=== PATIENT | female | born 1985 | race Caucasian/White ===

== ENCOUNTER 2018-06-03 19:49 | Emergency (ER) | payer SELFPAY ==
[~2018-06-03] VITALS: Ht 152.4 cm; Wt 70.6 kg
[2018-06-03 20:04] VITALS: BP 139/73; PULSE 122; RESP 18; Ht 152.4 cm; Wt 70.6 kg
--- NOTE | 2018-06-03 21:40 | ERD ---
ER Documentation Chief Complaint Chief Complaint Tachycardia, dizziness, CP X 5 days HPI 33-year-old female, with history of anxiety, presents to the emergency department complaining of sudden onset of dizziness, chest pain, palpitations associated with perioral numbness and finger paresthesias. The patient states that she has been under a lot of stress and persistent worrying about health and family. She has had similar episodes in the past but less intense, she is started Zoloft 3 days ago. History provided by patient. ROS All systems reviewed and are negative except as per history of present illness. Medications Home Meds Active Scripts Lorazepam* (Ativan*) 0.5 Mg Tablet, 0.5 MG PO Q8H PRN for ANXIETY, #10 TAB Prov:DEBO STRICKLAND MD 06/03/18 Allergies Allergies: Coded Allergies: No Known Allergy (Unverified , 06/03/18) PMhx/Soc Hx Miscellaneous Medical Probl: Yes (anxiety) Hx Alcohol Use: No Hx Substance Use: No Hx Tobacco Use: No Smoking Status: Never smoker FmHx Family History: No diabetes, No coronary disease Physical Exam Vitals Vital Signs Date Temp Pulse Resp B/P (MAP) Pulse Ox O2 O2 Flow FiO2 Time Delivery Rate 06/03/18 99.3 122 18 139/73 100 20:04 (95) Physical Exam Const: No acute distress Head: Atraumatic Eyes: Normal Conjunctiva ENT: Normal External Ears, Nose and Mouth. Neck: Full range of motion. No meningismus. Resp: Clear to auscultation bilaterally Cardio: Regular rate and rhythm, no murmurs Abd: Soft, non tender, non distended. Normal bowel sounds Skin: No petechiae or rashes Back: No midline or flank tenderness Ext: No cyanosis, or edema Neur: Awake and alert Psych: Normal Mood and Affect Results 24 hrs Current Medications Medications Dose Sig/Malka Start Time Status Last (Trade) Ordered Route PRN Stop Time Admin Dose Reason Admin Lorazepam 0.5 mg ONCE ONCE 06/03/18 DC 06/03/18 (Ativan) PO 22:30 06/03/18 22:23 22:31 Procedures/MDM Vital signs stable, Physical exam unremarkable, neurovascular exam intact. Differential diagnosis include but not limited to: Depression, anxiety, migraine, thyroid disease, electrolyte imbalance. Low suspicion for acute coronary event, aortic dissection, CVA. Pertinent Data: 12 Lead ECG: Sinus rhythm, no ST changes, normal T wave, normal intervals Physical examination and clinical presentation consistent most likely with anxie ty. During the ED course the patient remained stable, no new complaints. The patient received treatment with lorazepam presenting overall improvement of the symptoms. Results and clinical impression discussed with patient who agrees with management. The patient is stable to be treated outpatient and will be discharged home with a Rx for lorazepam, some side effects of prescribed me dications (headache, rash, nausea, vomiting, diarrhea, drowsiness, habituation, bleeding, hypertension, interactions with other medications) were reviewed. The patient was instructed to follow up with the primary care provider in the next 48h. If symptoms persist, worsen or new symptoms develop, then patient should return to the ED immediately. Instructions explained and given directly by me to the patient with acknowledgment and demonstrated understanding. Disclaimer: Inadvertent spelling and grammatical errors are likely due to EHR/dictation software use and do not reflect on the overall quality of patient care. Also, please note that the electronic time recorded on this note does not necessarily reflect the actual time of the patient encounter. Departure Diagnosis: Primary Impression: Anxiety Condition: Stable Additional Instructions: Thank you very much for allowing us to participate in your care. Your health and safety is our top priority at [facility]. Call your primary care doctor TOMORROW for an appointment during the next 2-4 days and bring all the information and medications prescribed. Have prescriptions filled and follow precisely the directions on the label. If the symptoms get worse and your provider is unavailable, return to the Emergency Department immediately. DEBO STRICKLAND MD Jun 03, 2018 21:40
[2018-06-03] MEDS ORDERED: LORAZEPAM 0.5 MG TAB PO ONE (22:30)
[2018-06-03] MEDS ORDERED: LORA-441 PO (23:01)
[2018-06-04] MEDS ORDERED: SERT50TA PO (09:00)
== END 2018-06-03 23:18 | disposition home or self-care (01) ==
LOC: FTE 19:49
DX: F41.9 Anxiety disorder, unspecified (principal)
CPT/HCPCS: 93005

== ENCOUNTER 2018-06-04 01:55 | Emergency (ER) | payer MEDICAID ==
[~2018-06-04] VITALS: Ht 152.4 cm; Wt 97.9 kg
[~2018-06-04 01:55] MED LIST: LORA-441 PO
[2018-06-04 01:59] VITALS: Ht 152.4 cm; Wt 97.9 kg
--- NOTE | 2018-06-04 03:32 | PSY ---
Date/Time of Note Date/Time of Note DATE: 06/04/18 TIME: 03:28 Psychiatric Subjective Eval Consent Pt consented to telemedicine: Yes Subjective Evaluation Patient location: emergency Chief Complaint: ANXIETY/PANIC ATTACKS X 5 DAYS; NOT TAKING ATIVAN RX DIRECTED Medical history Problems Medical Problems: (1) Anxiety Status: Acute Allergies: Coded Allergies: No Known Allergy (Unverified , 06/03/18) Psychiatric Objective Eval Mental Status Examination: Laboratory Results Laboratory Tests Test 06/04/18 02:30 06/04/18 03:04 Urine Color YELLOW Urine Clarity CLEAR Urine pH 6.0 Urine Specific [place] 1.011 Urine Ketones 2+ mg/dL Urine Nitrite NEGATIVE mg/dL Urine Bilirubin NEGATIVE mg/dL Urine Urobilinogen NEGATIVE mg/dL Urine Leukocyte Esterase NEGATIVE Miesha/ul Urine Microscopic RBC 1 /HPF Urine Microscopic WBC 1 /HPF Urine Bacteria FEW /HPF Urine Mucus FEW /HPF Urine Hemoglobin 1+ mg/dL Urine Glucose NEGATIVE mg/dL Urine Total Protein NEGATIVE mg/dl Urine Opiates Screen Negative Urine Barbiturates Negative Urine Amphetamines Screen Negative Urine Benzodiazepines Screen Positive Urine Cocaine Screen Negative Urine Cannabinoids Positive White Blood Count 8.4 10^3/ul Red Blood Count 4.51 10^6/ul Hemoglobin 14.5 g/dl Hematocrit 43.1 % Mean Corpuscular Volume 95.6 fl Mean Corpuscular Hemoglobin 32.2 pg Mean Corpuscular Hemoglobin Concent 33.6 g/dl Red Cell Distribution Width 12.0 % Platelet Count 303 10^3/UL Mean Platelet Volume 9.4 fl Immature Granulocytes % 0.500 % Neutrophils % 80.6 % Lymphocytes % 13.5 % Monocytes % 5.0 % Eosinophils % 0.2 % Basophils % 0.2 % Nucleated Red Blood Cells % 0.0 /100WBC Immature Granulocytes # 0.040 10^3/ul Neutrophils # 6.7 10^3/ul Lymphocytes # 1.1 10^3/ul Monocytes # 0.4 10^3/ul Eosinophils # 0.0 10^3/ul Basophils # 0.0 10^3/ul Nucleated Red Blood Cells # 0.0 10^3/ul Assessment and Plan Recommendation/Plan Discharge Disposition: Psychiatric inpatient Legal Status: Voluntary Assessment Additional comments: IDENTIFYING INFORMATION: 33 year old Female patient who is currently located at the hospital and for whom psychiatric consultation was requested. SOURCES OF INFORMATION: The patient who appears to be reliable and the medical records; the nursing staff. [id number], Ms. Lucero, who appears to be reliable. CHIEF COMPLAINT: "panic attacks". HISTORY OF PRESENT ILLNESS: The patient was interviewed via telemedicine in the presence of and under the supervision of nursing staff of the hospital. The consent to conducting this in [facility] via telemedicine was obtained by the nursing staff at the hospital. NAPOLEON Jaquez reports that the patient presented with anxiety. Denied having SI, HI. Is not on a 5150 hold. The patient reports having anxiety, panic attacks with intense anxiety, t achycardia, tingling in her fingers, nausea/vomitting, fear of getting a heart attack, admits to agoraphobia. Reports that she was worried she might hurt herself, but does not want to do so. Admits to feeling depressed, having anhedonia, admits to sleep-maintenance insomnia, low appetite. The patient denies having HI. [id number] reports that the pt stated that she is afraid she may hurt herself and ask for help. The patient denies using alcohol heavily or regularly. The patient reports using MJ occasionally. The patient denies using any other substances. In terms of past psychiatric history, the patient reports having a history of no past psychiatric hospitalizations. The patient reports having a history of no past suicide attempts; cut herself mercado perficially when a teenager. Past medication trials: unknown antidepressant. The patient denies ever having a history of AH, delusions, manic or hypomanic episodes. PAST MEDICAL HISTORY: none. CURRENT MEDICATIONS: xanax 0.25 mg po q4hrs prn anxiety, zoloft 50 mg po qday, lorazepam 0.5 mg po bid prn anxiety. ALLERGIES TO MEDICATIONS: NKDA. LABORATORY TESTS: CBC wnl, UDS + benzos, MJ. 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 FAMILY HISTORY: Noncontributory for bipolar disorder, schizophrenia. Depression: greatgrandmother, uncle. REVIEW OF SYSTEMS: Constitutional (e.g., fever, weight loss): negative; Eyes, Ears, Nose, Mouth, Throat: negative; Cardiovascular: negative; Respiratory: negative; Gastrointestinal: negative; Genitourinary: negative; Musculoskeletal: negative; Integumentary (skin and/or breast): negative; Neurological: negative; Psychiatric: as per HPI; Endocrine: negative; Hematologic/Lymphatic: negative; Allergic/Immunologic: negative. MENTAL STATUS EXAMINATION: General Appearance and Behavior: tearful, cooperative with the interview, pleasant with the current interviewer, makes fair eye contact, fairly groomed, no abnormal movements noted, Speech: normal rate, regular rhythm, normal latency, low volume, decreased amount. Flow of thought: sequential, logical, goal-directed, Content of thought: no auditory hallucinations, no visual hallucinations, no delusions, positive for ego-dystonic suicidal ideation; no homicidal ideation, Mood: "depressed", Affect: dysthymic, dysphoric, not reactive, Attention: normal based on the interview, Insight: fair, Judgment: poor, Memory: normal based on the interview, Sensorium: alert and oriented to person, place and date. ASSESSMENT: The patient's presentation and history are consistent with the diagnosis of major depressive disorder, panic disorder with agoraphobia. The patient presents in a major depressive episode in the context of medication compliance, psychosocial stressors and substance use. admits to using cannabis occasionally. No evidence of psychosis, deirdre, hypomania on exam. PLAN: - Medication management: Would continue Zoloft 50 mg by mouth twice a day. Would Increase Ativan to 1 mg by mouth 3 times a day as needed for anxiety. Would start haloperidol 5 mg IM PRN severe agitation q4 hours. Would start diphenhydramine 50 mg IM PRN severe agitation q4 hours. Would start lorazepam 2 mg IM PRN severe agitation q4 hours Will defer to the inpatient psychiatry team for other medication changes. - Labs: Please check CMP, Alcohol level, TSH. - Psychotherapy: Provided supportive psychotherapy and psychoeducation. - Disposition: Would recommend voluntary admission to the inpatient psychiatric unit as the patient would benefit from such an intervention so long as the patient has been cleared medically for admission to psychiatry. The patient is agreeable to being hospitalized in the inpatient psychiatric unit at this time. Would place on suicide precautions. Discussed about the above plan with Dr. Madrid. GALE QUIROS MD Jun 04, 2018 03:32
[2018-06-04] MEDS ORDERED: LORAZEPAM 1 MG TAB PO ONE (04:00)
[2018-06-04] MEDS ORDERED: DIPHENHYDRAMINE 50 MG INJ IM ONE (05:00)
[2018-06-04] MEDS ORDERED: SERTRALINE 50 MG TAB PO SCH (09:00)
[2018-06-04] MEDS ORDERED: SERT50TA PO (09:00)
[2018-06-04] MEDS: LORAZEPAM 1 MG TAB PO PRN ×2 (09:10→15:33)
--- NOTE | 2018-06-04 10:11 | QN ---
Documentation Comment Patient was signed out to me by Dr. Trejo who initially saw the patient. Observation Note: Time: 4 hours Family Hx: Negative for diabetes Evaluation: Multiple exams showed improving symptoms and no evidence of clinical decompensation. KARTHIK REEVES MD Jun 04, 2018 10:11
[2018-06-04] MEDS ORDERED: ACETAMINOPHEN 325 MG TAB PO ONE (13:30)
--- NOTE | 2018-06-04 15:16 | PSY ---
Date/Time of Note Date/Time of Note DATE: 06/04/18 TIME: 15:08 Psychiatric Subjective Eval Consent Pt consented to telemedicine: Yes Subjective Evaluation Patient location: emergency Chief Complaint: ANXIETY/PANIC ATTACKS X 5 DAYS; NOT TAKING ATIVAN RX DIRECTED History of present illness 33 yo employed female, presented to ED x2 in 24 hours due to persistent state of panic. Pt is tearful; she said she knows a woman who committed suicide by jumping off the roof due to severe anxiety and she is afraid she will loose control and will do something similar to herself. She is stressed out about saray joseph, her going through immigration process and her dealing with work, kids and finances on her own. Hopeless, helpless, sad; started on zoloft 5 ays ago but feels worse. Poor sleep, poor appetite, restless, racing thoughts. NO psychosis, no HI. NO Active Si but is afraid of "dark thoughts". 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 Psychiatric Objective Eval Review of Systems: Review of Systems: Not Applicable Physical Examination: Sleep: Insomnia Appetite: Decreased Energy: Decreased Interest: Decreased Mental Status Examination: Appearance: Groomed Eye Contact: Good Psychomotor Activity: Normal Behavior: Cooperative Speech: Clear AFFECT: Depressed, Anxious Mood: Depressed, Anxious Though Process: Linear Thought Content: Normal Suicidal: Yes Homicidal: No On 72 hour hold: No Orientation: x4 Cognition: Alert Insight: Impared Judgement: Impared Laboratory Results Laboratory Tests Test 06/04/18 02:30 06/04/18 03:04 Urine Color YELLOW Urine Clarity CLEAR Urine pH 6.0 Urine Specific [place] 1.011 Urine Ketones 2+ mg/dL Urine Nitrite NEGATIVE mg/dL Urine Bilirubin NEGATIVE mg/dL Urine Urobilinogen NEGATIVE mg/dL Urine Leukocyte Esterase NEGATIVE Miesha/ul Urine Microscopic RBC 1 /HPF Urine Microscopic WBC 1 /HPF Urine Bacteria FEW /HPF Urine Mucus FEW /HPF Urine Hemoglobin 1+ mg/dL Urine Glucose NEGATIVE mg/dL Urine Total Protein NEGATIVE mg/dl Urine Opiates Screen Negative Urine Barbiturates Negative Urine Amphetamines Screen Negative Urine Benzodiazepines Screen Positive Urine Cocaine Screen Negative Urine Cannabinoids Positive White Blood Count 8.4 10^3/ul Red Blood Count 4.51 10^6/ul Hemoglobin 14.5 g/dl Hematocrit 43.1 % Mean Corpuscular Volume 95.6 fl Mean Corpuscular Hemoglobin 32.2 pg Mean Corpuscular Hemoglobin Concent 33.6 g/dl Red Cell Distribution Width 12.0 % Platelet Count 303 10^3/UL Mean Platelet Volume 9.4 fl Immature Granulocytes % 0.500 % Neutrophils % 80.6 % Lymphocytes % 13.5 % Monocytes % 5.0 % Eosinophils % 0.2 % Basophils % 0.2 % Nucleated Red Blood Cells % 0.0 /100WBC Immature Granulocytes # 0.040 10^3/ul Neutrophils # 6.7 10^3/ul Lymphocytes # 1.1 10^3/ul Monocytes # 0.4 10^3/ul Eosinophils # 0.0 10^3/ul Basophils # 0.0 10^3/ul Nucleated Red Blood Cells # 0.0 10^3/ul Sodium Level 142 mmol/L Potassium Level 3.9 mmol/L Chloride Level 105 mmol/L Carbon Dioxide Level 25 mmol/L Anion Gap 12 Blood Urea Nitrogen 8 mg/dl Creatinine 0.59 mg/dl Est Glomerular Filtrat Rate mL/min > 60 mL/min Glucose Level 132 mg/dl Calcium Level 10.9 mg/dl Total Bilirubin 0.2 mg/dl Direct Bilirubin 0.00 mg/dl Indirect Bilirubin 0.2 mg/dl Aspartate Amino Transf (AST/SGOT) 33 IU/L Alanine Aminotransferase (ALT/SGPT) 15 IU/L Alkaline Phosphatase 91 IU/L Total Protein 8.7 g/dl Albumin 5.0 g/dl Globulin 3.70 g/dl Albumin/Globulin Ratio 1.35 Thyroid Stimulating Hormone (TSH) 2.880 MIU/L Serum HCG, Qualitative NEGATIVE Salicylates Level < 1.0 mg/dl Acetaminophen Level < 10.0 ug/ml Ethyl Alcohol Level < 10.0 mg/dl Assessment and Plan Assessment/Diagnosis Diagnosis MAJOR DEPRESSIVE DISORDER RECURRENT SEVERE W/O PSYCHOSIS. PANIC DISORDER. Recommendation/Plan Medication Management STOP ZOLOFT - INCREASED ANXIETY AFTER 5 DAYS ON ZOLOFT. START PAXIL 20 MG POQHS. STOP XANAX. CLONAZEPAM ODT 0.5 MG PO TID; FOR ANXIETY, AGITATION: HALDOL 2 MG + ATIVAN 2 MG + BENADRYL 50 MG PO OR IM PRN Q 8 HRS. Multiple antipsychotics: Yes Psychotherapy DEFER TO INPT Discharge Disposition: Psychiatric inpatient Legal Status: Voluntary Other TRANSFER TO INPT PSYCH FOR DTS. PT IS WILLING TO ACCEPT INPT CARE VOLUNTARY. GUSTAVO GAITAN MD Jun 04, 2018 15:16
--- NOTE | 2018-06-04 16:09 | EN ---
Date/Time of Note Date/Time of Note DATE: 06/04/18 TIME: 16:07 ER Progress Note Psychiatric Observation Note: Indication: Dark racing thoughts, possible acute psychosis Duration: Greater than 14 hours Family history: As documented in original HPI The patient was observed with serial exams over the above timeframe. The patie nt continued to be well-appearing, and observation continued without complication. All other needs have been met during emergency department stay. Routine psychiatric medications ordered: Yes, see EMR Hold status: Patient is not currently on hold but is recommended for voluntary placement. The patient is having dark racing thoughts. Pending PMR T evaluation Placement status: As noted above based on my review of the patient's chart, vital signs and electronic medical record the patient is medically cleared for psychiatric evaluation and placement. Pending PMR T evaluation at this time. Psychiatric recommendation Assessment and Plan Assessment/Diagnosis Diagnosis MAJOR DEPRESSIVE DISORDER RECURRENT SEVERE W/O PSYCHOSIS. PANIC DISORDER. Recommendation/Plan Medication Management STOP ZOLOFT - INCREASED ANXIETY AFTER 5 DAYS ON ZOLOFT. START PAXIL 20 MG POQHS. STOP XANAX. CLONAZEPAM ODT 0.5 MG PO TID; FOR ANXIETY, AGITATION: HALDOL 2 MG + ATIVAN 2 MG + BENADRYL 50 MG PO OR IM PRN Q 8 HRS. Multiple antipsychotics: Yes Psychotherapy DEFER TO INPT Discharge Disposition: Psychiatric inpatient Legal Status: Voluntary Other TRANSFER TO INPT PSYCH FOR DTS. PT IS WILLING TO ACCEPT INPT CARE VOLUNTARY. SIRI HAQUE MD Jun 04, 2018 16:09
[2018-06-04] MEDS ORDERED: PAROXETINE 20 MG TAB PO SCH (21:00)
[2018-06-04] MEDS: clonAZEPAM 0.5 MG TAB PO SCH (21:28)
--- NOTE | 2018-06-04 23:44 | ERD ---
ER Documentation Chief Complaint Chief Complaint ANXIETY/PANIC ATTACKS X 5 DAYS; NOT TAKING ATIVAN RX DIRECTED HPI This is a 33-year-old female with anxiety and panic attacks for 5 days. She is was prescribed Ativan but was afraid to take it. According to the family she has not been sleeping regularly and unfortunately the patient has not been sleeping at all. Patient denies suicidal ideation same. Patient also denies homicidal ideations ROS All systems reviewed and are negative except as per history of present illness. Medications Home Meds Active Scripts Lorazepam* (Ativan*) 0.5 Mg Tablet, 0.5 MG PO Q8H PRN for ANXIETY, #10 TAB Prov:DEBO STRICKLAND MD 06/03/18 Reported Medications Sertraline Hcl* (Zoloft*) 50 Mg Tablet, 50 MG PO DAILY, #30 TAB 06/04/18 Allergies Allergies: Coded Allergies: No Known Allergy (Unverified , 06/04/18) PMhx/Soc Medical and Surgical Hx: pt denies Surgical Hx Hx Miscellaneous Medical Probl: Yes (anxiety) Hx Alcohol Use: No Hx Substance Use: No Hx Tobacco Use: No Smoking Status: Never smoker Physical Exam Vitals Vital Signs Date Temp Pulse Resp B/P (MAP) Pulse Ox O2 O2 Flow FiO2 Time Delivery Rate 06/04/18 98.1 95 18 115/73 100 Room Air 22:00 (87) 06/04/18 98.3 120 17 110/78 100 Room Air 08:51 (89) 06/04/18 98.3 88 20 131/88 99 04:02 (102) 06/04/18 97.9 131 20 141/92 99 01:59 (108) Physical Exam Const: No acute distress Head: Atraumatic Eyes: Normal Conjunctiva ENT: Normal External Ears, Nose and Mouth. Neck: Full range of motion. No meningismus. Resp: Clear to auscultation bilaterally Cardio: Regular rate and rhythm, no murmurs Abd: Soft, non tender, non distended. Normal bowel sounds Skin: No petechiae or rashes Back: No midline or flank tenderness Ext: No cyanosis, or edema Neur: Awake and alert Psych: Normal Mood and Affect Result Diagram: 06/04/18 0304 06/04/18 0304 Results 24 hrs Laboratory Tests Test 06/04/18 02:30 06/04/18 03:04 Urine Color YELLOW Urine Clarity CLEAR Urine pH 6.0 Urine Specific [place] 1.011 Urine Ketones 2+ mg/dL Urine Nitrite NEGATIVE mg/dL Urine Bilirubin NEGATIVE mg/dL Urine Urobilinogen NEGATIVE mg/dL Urine Leukocyte Esterase NEGATIVE Miesha/ul Urine Microscopic RBC 1 /HPF Urine Microscopic WBC 1 /HPF Urine Bacteria FEW /HPF Urine Mucus FEW /HPF Urine Hemoglobin 1+ mg/dL Urine Glucose NEGATIVE mg/dL Urine Total Protein NEGATIVE mg/dl Urine Opiates Screen Negative Urine Barbiturates Negative Urine Amphetamines Screen Negative Urine Benzodiazepines Screen Positive Urine Cocaine Screen Negative Urine Cannabinoids Positive White Blood Count 8.4 10^3/ul Red Blood Count 4.51 10^6/ul Hemoglobin 14.5 g/dl Hematocrit 43.1 % Mean Corpuscular Volume 95.6 fl Mean Corpuscular Hemoglobin 32.2 pg Mean Corpuscular Hemoglobin Concent 33.6 g/dl Red Cell Distribution Width 12.0 % Platelet Count 303 10^3/UL Mean Platelet Volume 9.4 fl Immature Granulocytes % 0.500 % Neutrophils % 80.6 % Lymphocytes % 13.5 % Monocytes % 5.0 % Eosinophils % 0.2 % Basophils % 0.2 % Nucleated Red Blood Cells % 0.0 /100WBC Immature Granulocytes # 0.040 10^3/ul Neutrophils # 6.7 10^3/ul Lymphocytes # 1.1 10^3/ul Monocytes # 0.4 10^3/ul Eosinophils # 0.0 10^3/ul Basophils # 0.0 10^3/ul Nucleated Red Blood Cells # 0.0 10^3/ul Sodium Level 142 mmol/L Potassium Level 3.9 mmol/L Chloride Level 105 mmol/L Carbon Dioxide Level 25 mmol/L Anion Gap 12 Blood Urea Nitrogen 8 mg/dl Creatinine 0.59 mg/dl Est Glomerular Filtrat Rate mL/min > 60 mL/min Glucose Level 132 mg/dl Calcium Level 10.9 mg/dl Total Bilirubin 0.2 mg/dl Direct Bilirubin 0.00 mg/dl Indirect Bilirubin 0.2 mg/dl Aspartate Amino Transf (AST/SGOT) 33 IU/L Alanine Aminotransferase (ALT/SGPT) 15 IU/L Alkaline Phosphatase 91 IU/L Total Protein 8.7 g/dl Albumin 5.0 g/dl Globulin 3.70 g/dl Albumin/Globulin Ratio 1.35 Thyroid Stimulating Hormone (TSH) 2.880 MIU/L Serum HCG, Qualitative NEGATIVE Salicylates Level < 1.0 mg/dl Acetaminophen Level < 10.0 ug/ml Ethyl Alcohol Level < 10.0 mg/dl Current Medications Medications Dose Sig/Malka Start Time Status Last (Trade) Ordered Route PRN Stop Time Admin Dose Reason Admin Lorazepam 1 mg ONCE ONCE 06/04/18 DC 06/04/18 (Ativan) PO 04:00 06/04/18 04:15 04:01 50 mg ONCE ONCE 06/04/18 DC 06/04/18 Diphenhydrami IM 05:00 06/04/18 05:01 ne HCl 05:01 (Benadryl) Sertraline 50 mg BID PO 06/04/18 DC 06/04/18 HCl 09:00 06/04/18 09:18 (Zoloft) 16:11 Lorazepam 1 mg TID PRN 06/04/18 DC 06/04/18 (Ativan) PO anxiety 09:00 06/04/18 15:33 16:11 650 mg ONCE ONCE 06/04/18 DC 06/04/18 Acetaminophen PO 13:30 06/04/18 14:16 (Tylenol 13:31 Tab) Paroxetine 20 mg QHS PO 06/04/18 06/04/18 HCl (Paxil) 21:00 20:29 Clonazepam 0.5 mg TID PO 06/04/18 06/04/18 (Klonopin) 21:00 21:28 Procedures/MDM Patient's behavioral symptoms have stabilized while in the department. Patient is medically cleared and appropriate for psychiatric evaluation and work up. No e/o neurologic, toxic, infectious, or metabolic cause. Patient was evaluated by telemetry psychiatry and found to be stable for a voluntary hold given her anxiety and thoughts of suicide. Signed out pending final disposition at 6 AM to oncoming physician Departure Diagnosis: Primary Impression: Psychological disorder Condition: DOMINICK Curry Jun 04, 2018 23:44
[2018-06-05] MEDS: clonAZEPAM 0.5 MG TAB PO SCH ×2 (08:39→12:13)
[2018-06-05] MEDS ORDERED: ACETAMINOPHEN 325 MG TAB PO ONE (11:00)
--- NOTE | 2018-06-05 11:01 | PSY ---
Date/Time of Note Date/Time of Note DATE: 06/05/18 TIME: 10:57 Psychiatric Subjective Eval Consent Pt consented to telemedicine: Yes Subjective Evaluation Patient location: emergency Chief Complaint: ANXIETY/PANIC ATTACKS X 5 DAYS; NOT TAKING ATIVAN RX DIRECTED Reason for consult: Reevaluation for anxiety History of present illness 33 yo employed female, presented to ED x2 in 24 hours due to persistent state of panic. Pt was seen by michael Reno yesterday. At that time she was tearful; she said she knows a woman who committed suicide by jumping off the roof due to severe anxiety and she is afraid she will loose control and will do something similar to herself. She is stressed out about finances, her going through immigration process and her dealing with work, kids and finances on her own. Pt was started on Paxil last HS; klonopin 0.5 mg tid; this AM she has bright affect, she says she feels better. She denies SI or HI and wants to be discharged. 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 Psychiatric Objective Eval Review of Systems: Review of Systems: Not Applicable Physical Examination: Sleep: Adequate Energy: Adequate Interest: Adequate Mental Status Examination: Appearance: Groomed Eye Contact: Good Psychomotor Activity: Normal Behavior: Cooperative Speech: Clear AFFECT: Appropriate Mood: Appropriate/Full Though Process: Linear Thought Content: Normal Suicidal: No Homicidal: No On 72 hour hold: No Orientation: x4 Cognition: Alert Insight: Intact Judgement: Intact Laboratory Results Laboratory Tests Test 06/04/18 02:30 06/04/18 03:04 Urine Color YELLOW Urine Clarity CLEAR Urine pH 6.0 Urine Specific [place] 1.011 Urine Ketones 2+ mg/dL Urine Nitrite NEGATIVE mg/dL Urine Bilirubin NEGATIVE mg/dL Urine Urobilinogen NEGATIVE mg/dL Urine Leukocyte Esterase NEGATIVE Miesha/ul Urine Microscopic RBC 1 /HPF Urine Microscopic WBC 1 /HPF Urine Bacteria FEW /HPF Urine Mucus FEW /HPF Urine Hemoglobin 1+ mg/dL Urine Glucose NEGATIVE mg/dL Urine Total Protein NEGATIVE mg/dl Urine Opiates Screen Negative Urine Barbiturates Negative Urine Amphetamines Screen Negative Urine Benzodiazepines Screen Positive Urine Cocaine Screen Negative Urine Cannabinoids Positive White Blood Count 8.4 10^3/ul Red Blood Count 4.51 10^6/ul Hemoglobin 14.5 g/dl Hematocrit 43.1 % Mean Corpuscular Volume 95.6 fl Mean Corpuscular Hemoglobin 32.2 pg Mean Corpuscular Hemoglobin Concent 33.6 g/dl Red Cell Distribution Width 12.0 % Platelet Count 303 10^3/UL Mean Platelet Volume 9.4 fl Immature Granulocytes % 0.500 % Neutrophils % 80.6 % Lymphocytes % 13.5 % Monocytes % 5.0 % Eosinophils % 0.2 % Basophils % 0.2 % Nucleated Red Blood Cells % 0.0 /100WBC Immature Granulocytes # 0.040 10^3/ul Neutrophils # 6.7 10^3/ul Lymphocytes # 1.1 10^3/ul Monocytes # 0.4 10^3/ul Eosinophils # 0.0 10^3/ul Basophils # 0.0 10^3/ul Nucleated Red Blood Cells # 0.0 10^3/ul Sodium Level 142 mmol/L Potassium Level 3.9 mmol/L Chloride Level 105 mmol/L Carbon Dioxide Level 25 mmol/L Anion Gap 12 Blood Urea Nitrogen 8 mg/dl Creatinine 0.59 mg/dl Est Glomerular Filtrat Rate mL/min > 60 mL/min Glucose Level 132 mg/dl Calcium Level 10.9 mg/dl Total Bilirubin 0.2 mg/dl Direct Bilirubin 0.00 mg/dl Indirect Bilirubin 0.2 mg/dl Aspartate Amino Transf (AST/SGOT) 33 IU/L Alanine Aminotransferase (ALT/SGPT) 15 IU/L Alkaline Phosphatase 91 IU/L Total Protein 8.7 g/dl Albumin 5.0 g/dl Globulin 3.70 g/dl Albumin/Globulin Ratio 1.35 Thyroid Stimulating Hormone (TSH) 2.880 MIU/L Serum HCG, Qualitative NEGATIVE Salicylates Level < 1.0 mg/dl Acetaminophen Level < 10.0 ug/ml Ethyl Alcohol Level < 10.0 mg/dl Assessment and Plan Assessment/Diagnosis Diagnosis MAJOR DEPRESSIVE DISRODER RECURRENT MODERATE; PANIC DISORDER. GEN ANXIETY DISORDER. Recommendation/Plan Medication Management CONTINUE PAXIL 20 MG POQHS, KLONOPIN 0.5 MG PO TID Multiple antipsychotics: Yes Psychotherapy PLEASE REFER TO IOP OR PHP IF POSSIBLE Discharge Disposition: Community (home) Legal Status: Voluntary Other PT DOES NOT PRESENT DTS, NO DTO OR GD; PT CAN BE DISCHARGED WITH OUT PT REFERRALS. GUSTAVO GAITAN MD Jun 05, 2018 11:01
[2018-06-05] MEDS ORDERED: PARO-2 PO (11:18)
[2018-06-05 11:34] VITALS: BP 113/65; PULSE 65; RESP 17
== END 2018-06-05 13:31 | disposition home or self-care (01) ==
LOC: E/R 01:55
DX: F99 Mental disorder, not otherwise specified (principal)
CPT/HCPCS: 80053; 80307; 81001; 84443; 84703; 85025; 96372; J1200; Z7502; Z7610

== ENCOUNTER 2018-06-08 15:20 | Emergency (ER) | payer MEDICAID ==
[~2018-06-08] VITALS: Ht 152.4 cm; Wt 75.0 kg
[~2018-06-08 15:20] MED LIST changes: +PARO-2 PO; +SERT50TA PO
[2018-06-08 15:28] VITALS: Ht 152.4 cm; Wt 75.0 kg
[2018-06-08] MEDS ORDERED: ACET-141 PO (21:52)
[2018-06-08] MEDS ORDERED: ALPR0.25 PO (21:52)
--- NOTE | 2018-06-08 22:29 | ERD ---
ER Documentation Chief Complaint Chief Complaint PSYCH MEDS "MAKING ME FEEL WEIRD" HPI The patient is a 33-year-old female, presenting to the ER because of anxiety. She was taking Zoloft that caused her insomnia, she was recently changed to Paxil on June 04, 2018 by the telepsychiatrist. However she could not tolerate Paxil neither and is requesting to see telepsychiatrist. She denies auditory/visual hallucination, suicidal/homicidal ideation, headache, neck pain, chest pain, dyspnea, abdominal pain, vomiting, dysuria, diarrhea. She does not smoke nor drink or does illicit drug Medical history: Anxiety, depression, panic disorder Past surgical history: None ROS All systems reviewed and are negative except as per history of present illness. Medications Home Meds Active Scripts Paroxetine Hcl* (Paxil*) 20 Mg Tablet, 20 MG PO HS for 7 Days, TAB Prov:KARTHIK REEVES MD 06/05/18 Reported Medications Acetaminophen* (Acetaminophen*) 500 MG Extra Strength Tablet, 500 MG PO Q4H PRN for PAIN AND OR ELEVATED TEMP, TAB 06/08/18 Alprazolam* (Xanax*) 0.25 Mg Tablet, 0.25 MG PO DAILY PRN for ANXIETY, TAB 06/08/18 Discontinued Reported Medications Sertraline Hcl* (Zoloft*) 50 Mg Tablet, 50 MG PO DAILY, #30 TAB 06/04/18 Discontinued Scripts Lorazepam* (Ativan*) 0.5 Mg Tablet, 0.5 MG PO Q8H PRN for ANXIETY, #10 TAB Prov:DEBO STRICKLAND MD 06/03/18 Allergies Allergies: Coded Allergies: No Known Allergy (Unverified , 06/08/18) PMhx/Soc History of Surgery: Yes (Ovarian cyst, tonsillectomy) Anesthesia Reaction: No Hx Neurological Disorder: No Hx Respiratory Disorders: No Hx Cardiac Disorders: No Hx Psychiatric Problems: Yes (anxiety, depression) Hx Miscellaneous Medical Probl: Yes (anxiety) Hx Alcohol Use: No Hx Substance Use: No Hx Tobacco Use: No Smoking Status: Never smoker Physical Exam Vitals Vital Signs Date Temp Pulse Resp B/P (MAP) Pulse Ox O2 O2 Flow FiO2 Time Delivery Rate 06/08/18 97.4 80 20 143/88 99 Room Air 20:16 (106) 06/08/18 98.1 79 18 132/71 99 15:28 (91) Physical Exam Const: No acute distress. Head: Atraumatic. Eyes: Normal Conjunctiva. ENT: Normal External Ears, Nose and Mouth. Neck: Full range of motion. No meningismus. Resp: Clear to auscultation bilaterally. Cardio: Regular rate and rhythm. Abd: Soft, non distended, normal bowel sounds, non tender. Skin: No petechiae or rashes. Back: No midline or flank tenderness. Ext: No cyanosis, or edema. Neur: Awake and alert. No focal deficit Psych: Anxious Procedures/MDM MEDICAL MAKING DECISION: The patient is a 33-year-old female, presenting with depression and inability to tolerate the medication. She is awaiting to talk to telepsychiatrist The differential diagnoses considered include but are not limited to anxiety attack, panic attack, depression Departure Diagnosis: Primary Impression: Anxiety Additional Impression: Depression Condition: Good Comments She is awaiting to talk to telepsychiatrist The patient's blood pressure was elevated (>120/80) but appears stable without evidence of hypertension emergency or urgency. The patient was counseled about the risks of hypertension and urged to pursue outpatient monitoring and therapy within a week with their primary care physician. STEFFANIE SNOWDEN MD Jun 08, 2018 22:29
--- NOTE | 2018-06-08 23:53 | PSY ---
Date/Time of Note Date/Time of Note DATE: 06/08/18 TIME: 23:31 Psychiatric Subjective Eval Consent Pt consented to telemedicine: Yes Subjective Evaluation Patient location: emergency Chief Complaint: PSYCH MEDS "MAKING ME FEEL WEIRD" History of present illness She has been seen several times in the ED over the past several days (see other notes) and was started on Paxil 20mg qhs. She said that the Paxil made her feel "wired." She wakes up in the morning with nausea and a headache. It makes her a little sleepy. She has been trying to do meditation to help with sleep as well. She tried to take half a tablet last night and still felt the same way. She continues to feel anxiety but stated she doesn't feel depressed and has fun with her kids and functions well at work. She denied ever wanting to be or kill herself even when the anxiety level is high. Past psychiatric history Previously took Zoloft, Xanax. Presently only on Paxil 20mg qhs. No past psychi atric admissions. Referred to a clinic and has intake for Monday. Might see psychiatric doctor one month later. Denied past suicide attempts. Hospitalization: no Family History +History of anxiety, depression. Family members take Effexor, Wellbutrin. 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 Psychiatric Objective Eval Mental Status Examination: Appearance: Groomed Eye Contact: Good Psychomotor Activity: Normal Behavior: Friendly Speech: Clear AFFECT: Anxious Mood: Anxious Though Process: Linear Thought Content: Normal Suicidal: No Homicidal: No On 72 hour hold: No Orientation: x4 Cognition: Alert Insight: Intact Judgement: Intact Attention Span: Intact Assessment and Plan Assessment/Diagnosis Diagnosis Unspecified Anxiety Disorder Recommendation/Plan Medication Management Consider Vistaril 25mg TID PRN, discussed she can continue Paxil or D/C at this time but if she continues taking Paxil for more than a week she should not stop it abruptly lest she have withdrawal. Discussed R/B/SE of Vistaril including sedation and cautioned her not to drive a car after taking it. Multiple antipsychotics: No Discharge Disposition: Community (home) Legal Status: Voluntary Other She denied any suicidal thoughts even when very anxious nor does she have past attempts and has no substance abuse issues. She is very treatment oriented and motivated to recover and overall doesn't appear a high imminent suicide risk. TAM FLORES MD Jun 08, 2018 23:43
[2018-06-09] MEDS ORDERED: HYDR25CA PO (00:18)
[2018-06-09 00:27] VITALS: BP 130/82; PULSE 76; RESP 18
== END 2018-06-09 00:20 | disposition home or self-care (01) ==
LOC: E/R 15:20
DX: F41.9 Anxiety disorder, unspecified (principal); F32.9 Major depressive disorder, single episode, unspecified
CPT/HCPCS: 99283